=== PATIENT | male | born 1995 | race Caucasian/White ===

== ENCOUNTER 2019-01-18 20:54 | Emergency (ER) | payer OTHER ==
[~2019-01-18] VITALS: Ht 195.6 cm; Wt 83.0 kg
[2019-01-18] MEDS ORDERED: NOHOMEMEDICATIONS (21:03)
[2019-01-18 21:22] LABS: ABSOLUTE BASOPHILS 0.1 thou/uL (0.0-0.2); ABSOLUTE EOSINOPHILS 0.3 thou/uL (0.0-0.7); ABSOLUTE LYMPHOCYTES 2.3 thou/uL (0.8-5.3); ABSOLUTE MONOCYTES 0.8 thou/uL (0.0-1.2); ABSOLUTE NEUTROPHILS 6.8 thou/uL (1.6-8.1); BASOPHILS 0.5 %; EOSINOPHILS 3.1 %; HEMATOCRIT 42.9 % (42.0-52.0); HEMOGLOBIN 14.8 gm/dL (14.0-18.0); LYMPHOCYTES 22.3 %; MCH 29.4 pg (26.0-34.0); MCHC 34.5 g/dL (28.0-37.0); MCV 85.2 fL (80.0-100.0); MONOCYTES 7.6 %; NUCLEATED RBCS 0 /100WBC; PLATELET COUNT* 284 thou/uL (150-400); POLYS 66.5 %; RBC 5.03 mil/uL (4.50-6.00); WBC 10.2 thou/uL (4.0-11.0)
[2019-01-18 21:29] LABS: CALCIUM 9.3 mg/dL (8.5-10.1); CREATININE 1.2 mg/dL (0.6-1.3); POTASSIUM 3.2 mmol/L (3.5-5.1)
[2019-01-18 21:31] LABS: APTT 27.6 Seconds (25.0-31.3); INR 1.1; PROTIME 11.7 Seconds (9.20-11.50)
[2019-01-18 21:40] LABS: ALBUMIN 4.3 g/dL (3.4-5.0); TOTAL BILIRUBIN 0.5 mg/dL (<0.1-1.0); TOTAL PROTEIN 7.2 g/dL (6.4-8.2)
[2019-01-18 21:45] LABS: URINE BILIRUBIN NEGATIVE (Negative); URINE BLOOD NEGATIVE (Negative); URINE CLARITY CLEAR; URINE COLOR YELLOW; URINE GLUCOSE-RANDOM NEGATIVE (Negative); URINE KETONES NEGATIVE (Negative); URINE LEUKOCYTES-REFLEX NEGATIVE (Negative); URINE NITRITE-REFLEX NEGATIVE (Negative); URINE PROTEIN NEGATIVE (Negative); URINE UROBILINOGEN 0.2 E.U./dl (0.2-1.0)
[2019-01-18 21:53] LABS: AMP/METHAMP Negative (Negative); BARBITURATES Negative (Negative); BENZODIAZEPINES Negative (Negative); COCAINE Negative (Negative); METHADONE Negative (Negative); OPIATES Negative (Negative); PCP Negative (Negative); THC Negative (Negative)
[2019-01-18] MEDS ORDERED: POTASSIUM20 PO (22:33)
[2019-01-18 22:50] VITALS: BP 129/73
--- NOTE | 2019-01-20 14:19 | EKG ---
[place] [address] ELECTROCARDIOGRAM REPORT Name: ASIF BUITRAGO Room: [facility]#: [id number] Admission: 01/18/19 Attend Phys: Discharge: 01/18/19 Date of : [birth year] Report #: [id number] THIS REPORT FOR: //name// [facility] ED Test Date: 2019-01-18 Test Time: 21:05:38 Pat Name: ASIF BUITRAGO Department: Room: Gender: M Design Quality Engineer: : [id number] Requested By: Javi Block Order Number: [id number] MD: Stew Valentino Measurements Intervals [place] Rate: 71 P: 70 VA: 189 QRS: 85 QRSD: 112 T: 38 QT: 382 QTc: 416 Interpretive Statements Sinus rhythm Borderline intraventricular conduction delay No previous ECG available for comparison Electronically Signed On 01-20-2019 14:19:41 CDT by Stew Valentino [email or web address] <ELECTRONICALLY SIGNED> By: Shelby Valentino MD, [facility] 01/20/19 1419 2105 04 Shelby Valentino MD, FACC /EPI
== END 2019-01-18 22:50 | disposition home or self-care (01) ==
LOC: M.ERS 20:54
PROVIDERS: Emergency Medicine Emergency Medical Services
DX: E87.6 Hypokalemia (principal); R53.1 Weakness; Z88.6 Allergy status to analgesic agent

== ENCOUNTER 2020-02-05 18:42 | Emergency (ER) | payer OTHER ==
[~2020-02-05] VITALS: Ht 195.6 cm; Wt 81.7 kg
[~2020-02-05 18:42] MED LIST: NOHOMEMEDICATIONS; POTASSIUM20 PO
[2020-02-05] MEDS ORDERED: PREDNISONE50 MG PO (19:32)
[2020-02-05] MEDS ORDERED: TRIAMCINOLONE A80 G2 TOP (19:32)
[2020-02-05 19:38] VITALS: BP 143/81
== END 2020-02-05 19:38 | disposition home or self-care (01) ==
LOC: M.ERS 18:42
DX: L25.9 Unspecified contact dermatitis, unspecified cause (principal); J45.909 Unspecified asthma, uncomplicated; Z88.6 Allergy status to analgesic agent

== ENCOUNTER 2020-10-29 22:45 | Emergency (ER) | payer OTHER ==
[~2020-10-29] VITALS: Ht 195.6 cm; Wt 81.7 kg
[~2020-10-29 22:45] MED LIST changes: +PREDNISONE50 MG PO; +TRIAMCINOLONE A80 G2 TOP
[2020-10-29] MEDS ORDERED: DOXYCYCLINE 10100 MG PO (23:47)
[2020-10-29 23:50] VITALS: BP 145/65
[2020-11-01] MEDS ORDERED: NORCO5 PO (13:53)
[2020-11-01] MEDS ORDERED: PREDNISONE 20 M20 MG PO (13:53)
== END 2020-10-30 00:41 | disposition home or self-care (01) ==
LOC: M.ERS 22:45
DX: S70.361A Insect bite (nonvenomous), right thigh, initial encounter (principal); L03.115 Cellulitis of right lower limb; J45.909 Unspecified asthma, uncomplicated; Z88.8 Allergy status to other drugs, medicaments and biological substances; Z90.89 Acquired absence of other organs; W57.XXXA Bitten or stung by nonvenomous insect and other nonvenomous arthropods, initial encounter; Y93.89 Activity, other specified; Y92.89 Other specified places as the place of occurrence of the external cause; Y99.8 Other external cause status